=== PATIENT | male | born 1955 | race Caucasian/White ===

== ENCOUNTER 2024-02-22 08:49 | Outpatient (CLI) | payer MEDICARE ==
[~2024-02-22] VITALS: Ht 182.9 cm; Wt 94.8 kg
[2024-02-22 09:18] VITALS: BP 160/95; PULSE 56; TEMP 97.5
[2024-02-22] MEDS ORDERED: PROAMATINE 5MG T5 MG PO (09:37)
[2024-02-22] MEDS ORDERED: KLOR-CON20 MEQ PO (09:37)
[2024-02-22] MEDS ORDERED: ZYLOPRIM 100MG100 MG PO (09:38)
[2024-02-22] MEDS ORDERED: RENVELA800 MG PO (09:38)
[2024-02-22] MEDS ORDERED: MAG-OX 400400 MG/TAB PO (09:39)
[2024-02-22] MEDS ORDERED: FLORINEF ACETA0.1 MG PO (09:39)
[2024-02-22] MEDS ORDERED: CALCITRIOL PO (09:39)
[2024-02-22] MEDS ORDERED: COLACE 100100 MG/CAP PO (09:40)
[2024-02-22] MEDS ORDERED: ASPIRIN 81M81 MG/TA2 PO (09:40)
[2024-02-22] MEDS ORDERED: OCUVITE1 TA1 PO (09:41)
[2024-02-22] MEDS ORDERED: PREDNISONE10 MG PO (09:42)
[2024-02-22] MEDS ORDERED: PACERONE200 MG PO (09:46)
[2024-02-22] MEDS ORDERED: NS Flush 25 ML IV Bag IV ONE (10:45)
[2024-02-22] MEDS ORDERED: NS 50 ML IV SCH (11:39)
[2024-02-22] MEDS ORDERED: Heparin 1,000 UNITS/ML 10 ML Multi-Dose VIAL IV SCH ×2 (11:41→11:42)
[2024-02-22] MEDS ORDERED: Lidocaine 2% w EPI (1:100,000) 20 ML Multi-Dose VIAL IJ SCH (11:45)
[2024-02-22 12:10] VITALS: BP 142/71; PULSE 60
--- NOTE | 2024-02-22 12:12 | NUR ---
Inder is transferred back to express unit rm 11 after TDC exchange with Dr. Gavin. Pt tolerated the procedure well; no sedation was administered. Inder is alert, pwd with reg and unlabored resps. Dressing to site is clean and dry. bs report and handoff of care to Peg CAMERON.
[2024-02-22 12:30] VITALS: BP 144/75; PULSE 60
[2024-02-22 12:45] VITALS: BP 144/82; PULSE 60
[2024-02-22 13:01] VITALS: BP 139/71; PULSE 60
--- NOTE | 2024-02-22 13:13 | NUR ---
PT TOLERATES RECOVERY PERIOD WELL. VS REMAIN WITHIN NORMAL LIMITS. DRESSING REMAINS CLEAN DRY AND INTACT. IV DISCONTINUED AND PT FREE FROM ACUTE CONCERNS AND COMPLAINTS. PT ASSISTED TO MAIN LOBBY VIA WHEELCHAIR AND VERBALIZED UNDERSTANDING OF DISCHARGE INSTRUCTIONS.
== END 2024-02-22 13:15 | disposition home or self-care (01) ==
LOC: COL.CAR 08:49
DX: I12.0 Hypertensive chronic kidney disease with stage 5 chronic kidney disease or end stage renal disease (principal); N18.6 End stage renal disease; Z99.2 Dependence on renal dialysis; Z95.1 Presence of aortocoronary bypass graft; Z94.0 Kidney transplant status; Z79.82 Long term (current) use of aspirin
CPT/HCPCS: C1751; J0737; J1644

== ENCOUNTER 2024-03-14 07:16 | Day surgery (SDC) | payer MEDICARE ==
--- NOTE | 2024-02-22 14:33 | NUR ---
Initial visit; Patient and his thanked Gambreler Helper for looking in on him and having a nice conversation that could have been a pleasant diversion from his health issues. They seemed pleased that Gambreler Helper said wonderful things about his Physician/Surgeon and they liked the prayer Gambreler Helper offered. Gambreler Helper offered God's blessings.
[~2024-03-14] VITALS: Ht 182.9 cm; Wt 96.3 kg
[~2024-03-14 07:16] MED LIST: ASPIRIN 81M81 MG/TA2 PO; CALCITRIOL PO; COLACE 100100 MG/CAP PO; FLORINEF ACETA0.1 MG PO; KLOR-CON20 MEQ PO; MAG-OX 400400 MG/TAB PO; NS 1,000 ML IV SCH; OCUVITE1 TA1 PO; PACERONE200 MG PO; PREDNISONE10 MG PO; PROAMATINE 5MG T5 MG PO; RENVELA800 MG PO; ZYLOPRIM 100MG100 MG PO
[2024-03-14 08:14] VITALS: BP 140/63; PULSE 60; TEMP 98
[2024-03-14 08:27] LABS: CALCIUM 7.8 mg/dL (8.4-10.2); CREATININE, serum 5.21 mg/dL (0.72-1.25)
[2024-03-14] MEDS ORDERED: Lidocaine PF 2% (20 MG/ML) 5 ML VIAL ONE (08:59)
[2024-03-14] MEDS ORDERED: fentaNYL 50 MCG/ML 2 ML VIAL ONE (08:59)
--- NOTE | 2024-03-14 09:17 | NUR ---
PT K+ 3.0, ANESTHESIA NOTIFIED.
[2024-03-14] MEDS ORDERED: NORCO 325 MG-51 TAB PO (09:28)
[2024-03-14] MEDS ORDERED: Ondansetron 4 MG/2 ML VIAL ONE (09:40)
[2024-03-14] MEDS ORDERED: dexAMETHasone 10 MG/ML VIAL ONE (09:40)
[2024-03-14] MEDS ORDERED: Topical Skin Adhesive 1 EACH (1 ML) TOP ONE (09:51)
[2024-03-14] MEDS ORDERED: ePHEDrine 50 MG/ML VIAL ONE (09:54)
[2024-03-14] MEDS ORDERED: Ondansetron 4 MG/2 ML VIAL IV PRN ×2 (10:00→11:30)
[2024-03-14] MEDS ORDERED: fentaNYL 50 MCG/ML 1 ML SYRINGE/VIAL [PACU/SDC ONLY] IV PRN (10:00)
[2024-03-14] MEDS ORDERED: Meperidine 50 MG/ML 1 ML VIAL IV PRN (10:00)
[2024-03-14] MEDS ORDERED: Morphine 2 MG/1 ML VIAL [PACU/SDC ONLY] IV PRN (10:00)
[2024-03-14] MEDS ORDERED: HYDROmorphone 1 MG/1 ML SYRINGE [PACU/SDC ONLY] IV PRN (10:00)
[2024-03-14] MEDS ORDERED: droPERidol 2.5 MG/ML 2 ML VIAL IV PRN (10:00)
[2024-03-14] MEDS ORDERED: Gelatin Sponge,Absorbable Size 100 SPONGE TP ONE (10:59)
[2024-03-14] MEDS ORDERED: Thrombin Human (Recombinant) 5,000 UNITS VIAL TP ONE (10:59)
[2024-03-14] MEDS ORDERED: Acetaminophen 325 MG TAB PO PRN (11:30)
[2024-03-14 11:48] VITALS: TEMP 97.4
[2024-03-14 12:10] VITALS: BP 145/58; PULSE 48
[2024-03-14 12:25] VITALS: BP 148/63; PULSE 52
[2024-03-14 12:40] VITALS: BP 145/65; PULSE 49
--- NOTE | 2024-03-14 12:59 | NUR ---
1210- PT BACK FROM PACU. MONITOR IN PLACE AND VS OBTAINED. ENCOURAGED TO TAKE DEEP BREATHS TO HELP WITH OXYGEN SATURATION. SPRITE AND CHEESE AND CRACKERS GIVEN TO PT. DRESSING TO ABDOMEN CLEAN, DRY AND INTACT. AV FISTULA SITE CLEAN WITH SKIN GLUE IN PLACE. 1225-TOLERATING FOOD AND DRINK. NO NAUSEA OR PAIN NOTED. 1245- IV REMOVED PER ORDERS. 1250- DISCHARGE INSTRUCTIONS GIVEN TO PT AND . ANSWERED ALL QUESTIONS IN FULL. PT STATES HE IS HAVING MINIMAL PAIN, EDUCATED TO TAKE PAIN MEDICATION AT HOME IF NEEDED. PT VERBALIZED UNDERSTANDING. 1255- PT DISCHARGED FROM HOSPITAL VIA WHEELCHAIR TO PRIVATE VEHICLE DRIVEN BY SPOUSE.
== END 2024-03-14 12:55 ==
LOC: SDCO 07:16
PROVIDERS: Registered Nurse
DX: I13.2 Hypertensive heart and chronic kidney disease with heart failure and with stage 5 chronic kidney disease, or end stage renal disease (principal); E11.22 Type 2 diabetes mellitus with diabetic chronic kidney disease; N18.6 End stage renal disease; T86.42 Liver transplant failure; Z99.2 Dependence on renal dialysis; Z94.0 Kidney transplant status; Z95.1 Presence of aortocoronary bypass graft; Z85.828 Personal history of other malignant neoplasm of skin; Z79.82 Long term (current) use of aspirin
CPT/HCPCS: C1750; C1768; J0665; J0690; J1100; J1644; J2405; J2704; J3010; J7030